=== PATIENT | female | born 1975 | race Caucasian/White ===

== ENCOUNTER 2020-11-03 08:18 | Outpatient (CLI) | payer BC ==
--- NOTE | 2020-11-03 08:06 | XRAY Report ---
PROCEDURE: Foot 3 View LT INDICATIONS: LEFT FOOT PAIN TECHNIQUE: 3 views of the foot were acquired. COMPARISON: None FINDINGS: Bones: No fractures or dislocations. No suspicious bony lesions. Soft tissues: No tibiotalar joint effusion. Achilles tendon appears normal. IMPRESSION: No visualized acute fracture or dislocation. However, occult injury cannot be excluded. Recommend ling rt interval imaging follow-up in 7-10 days as clinically indicated for additional evaluation. Reviewed by: Sharon Simmons MD on 11/03/2020 8:05 AM PDT Approved by: Sharon Simmons MD on 11/03/2020 8:05 AM PDT Station ID: [id number]
== END 2020-11-03 08:19 | disposition home or self-care (01) ==
LOC: DI.S 08:18
PROVIDERS: ATTEND Physician Assistant Medical
DX: M79.672 Pain in left foot (principal)

== ENCOUNTER 2021-02-08 08:00 | Outpatient (CLI) | payer BC ==
--- NOTE | 2021-02-08 12:11 | XRAY Report ---
PROCEDURE: Finger(s) LT INDICATIONS: CONTUSION OF LEFT THUMB TECHNIQUE: AP hand, 2 views of the left first finger(s) acquired. COMPARISON: None FINDINGS: Bones: No fractures or dislocations. No suspicious bony lesions. Soft tissues: No suspicious soft tissue calcifications. IMPRESSION: No fracture. No osseous lesion. If there are persistent symptoms or continued clinical concern for pa thology, then repeat plain film radiographs (7-10 days) or advanced imaging (CT, MR, bone scan) shoul d be considered for further evaluation. Reviewed by: Belem Salomon MD, PhD on 02/08/2021 12:09 PM PDT Approved by: Belem Salomon MD, PhD on 02/08/2021 12:09 PM PDT Station ID: [id number]
== END 2021-02-08 23:59 | disposition home or self-care (01) ==
LOC: DI.S 08:00
PROVIDERS: ATTEND Physician Assistant Medical
DX: S60.112A Contusion of left thumb with damage to nail, initial encounter (principal)

== ENCOUNTER 2022-09-30 06:59 | Outpatient (CLI) | payer BC ==
[2022-09-30 09:04] LABS: CALCIUM, IONIZED 1.21 mmol/L (1.15-1.33); VBG PH 7.387 (7.31-7.41)
[2022-09-30 09:09] LABS: BASOPHILS # (AUTO) 0.1 10^3/uL (0.0-0.1); BASOPHILS % (AUTO) 1.8 %; EOSINOPHILS # (AUTO) 0.1 10^3/uL (0.0-0.7); EOSINOPHILS % (AUTO) 1.8 %; HCT - HEMATOCRIT 40.4 % (37.0-47.0); HGB - HEMOGLOBIN 13.1 g/dL (12.0-16.0); LYMPHOCYTES # (AUTO) 1.3 10^3/uL (1.5-3.5); LYMPHOCYTES % (AUTO) 23.4 %; MEAN CORPUSCULAR HEMOGLOBIN 29.3 pg (27.0-31.0); MEAN CORPUSCULAR HGB CONC 32.4 g/dL (32.0-36.0); MEAN CORPUSCULAR VOLUME 90.4 fL (81.0-99.0); MEAN PLATELET VOLUME 9.8 fL (7.9-10.8); MONOCYTES # (AUTO) 0.4 10^3/uL (0.0-1.0); MONOCYTES % (AUTO) 6.3 %; NEUTROPHILS # (AUTO) 3.8 10^3/uL (1.5-6.6); NEUTROPHILS % (AUTO) 66.5 %; PLT - PLATELET COUNT 252 10^3/uL (130-450); RED BLOOD COUNT 4.47 10^6/uL (4.20-5.40); RED CELL DISTRIBUTION WIDTH 13.1 % (12.0-15.0); WHITE BLOOD COUNT 5.7 x10^3/uL (4.8-10.8)
[2022-09-30 09:40] LABS: THYROID STIMULATING HORMONE 0.58 uIU/mL (0.34-5.60)
[2022-09-30 09:42] LABS: FREE T3 2.85 pg/mL (2.5-3.9); FREE T4 (FREE THYROXINE) 0.94 ng/dL (0.58-1.64)
[2022-09-30 09:47] LABS: FERRITIN 59.9 ng/mL (11.0-306.8)
[2022-09-30 09:52] LABS: ALBUMIN 4.4 g/dL (3.2-5.5); CALCIUM 10.3 mg/dL (8.5-10.3); CREATININE 0.8 mg/dL (0.4-1.0); PHOSPHORUS 2.6 mg/dL (2.5-4.6); POTASSIUM 3.6 mmol/L (3.5-5.0)
--- NOTE | 2022-09-30 09:52 | Ultrasound Report ---
PROCEDURE: Retroperitoneal INDICATIONS: HYPERTENSION, FATIGUE, LOW HCT/HGB/RBCS TECHNIQUE: Real-time scanning was performed of the retroperitoneal organs, with image documentation. COMPARISON: None. FINDINGS: Right kidney measures 11 cm. The left kidney measures 11 cm. Borderline cortical thinning is 0.8 and 0.9 cm. No hydronephrosis. Bladder within normal limits, with postvoid residual of 14 cc. Both ureteral jets visualized. IMPRESSION: Borderline cortical thinning of the kidneys, 0.8 and 0.9 cm. No hydronephrosis. Unremarkable appearan ce of the bladder. Arterial Doppler findings are separately dictated. Reviewed by: Byron Brice MD on 09/30/2022 9:50 AM [facility] Approved by: Byron Brice MD on 09/30/2022 9:50 AM PST Station ID: [id number]
--- NOTE | 2022-09-30 12:09 | Ultrasound Report ---
PROCEDURE: Arterial Visceral Complete INDICATIONS: HYPERTENSION, FATIGUE, LOW HCT/HGB/RBCS TECHNIQUE: Real time scanning was performed of both kidneys, followed by Color and pulsed Doppler in terrogation of the renal vessels. COMPARISON: None FINDINGS: Aortic peak systolic velocity: 120.6 cm/s. Right side: Lynn-scale imaging: Kidney is 10.4 cm long; . No hydronephrosis. No nephrolithiasis. Renal cortex is normal in echogenicity. No suspicious solid renal masses. Proximal renal artery peak systolic velocity: 143 cm/s. Mid renal artery peak systolic velocity: 134 cm/s. Distal renal artery peak systolic velocity: 116 cm/s. Renal vein: Patent, without thrombus. Peak renal/aortic ratio (RAR): 1.2. Left side: Lynn-scale imaging: Kidney is 11.2 cm long; No hydronephrosis. No nephrolithiasis. Renal cortex i s normal in echogenicity. No suspicious solid renal masses. Proximal renal artery peak systolic velocity: 132 cm/s. Mid-renal artery peak systolic velocity: 92 cm/s. Distal renal artery peak systolic velocity: 73 cm/s. Renal vein: Patent, without thrombus. Peak renal/aortic ratio (RAR): 1.1. IMPRESSION: No duplex ultrasound evidence of renal artery stenosis Reviewed by: Luis Lopez MD on 09/30/2022 11:08 AM [facility] Approved by: Luis Lopez MD on 09/30/2022 11:08 AM [facility] Station ID: [id number]
[2022-10-01 07:10] LABS: THYROID PEROXIDASE (TPO) AB 10 IU/mL (0-34)
[2022-10-01 18:07] LABS: THYROGLOBULIN ANTIBODY <1.0 IU/mL (0.0-0.9)
== END 2022-09-30 07:00 | disposition home or self-care (01) ==
LOC: DI 06:59
PROVIDERS: ATTEND Naturopath
DX: I10 Essential (primary) hypertension (principal); R53.83 Other fatigue; R35.0 Frequency of micturition; E87.6 Hypokalemia
CPT/HCPCS: 36415; 80069; 81599; 82310; 82330; 82728; 83540; 83921; 84439; 84443; 84466; 84481; 85014; 85018; 85025; 86376; 86800; 93975

== ENCOUNTER 2022-10-06 10:09 | Outpatient (CLI) | payer BC | END 2022-10-06 10:10 | disposition home or self-care (01) | LOC: LAB 10:09 | PROVIDERS: ATTEND Naturopath | DX: E83.52 Hypercalcemia (principal); E87.6 Hypokalemia; R53.83 Other fatigue | CPT/HCPCS: 36415; 81599; 83970; 84445 ==

== ENCOUNTER 2022-11-08 15:08 | Outpatient (CLI) | payer BC ==
[2022-11-08 15:32] LABS: CALCIUM, IONIZED 1.26 mmol/L (1.15-1.33); VBG PH 7.363 (7.31-7.41)
--- NOTE | 2022-11-11 12:13 | DEXA Report ---
PROCEDURE: Dexa Spine and/or Hip INDICATIONS: HYPERCALCEMIA, HYPERPARATHYROIDISM TECHNIQUE: Dual energy x-ray absorptiometry (DXA) was performed on a [employer] System. Regions measur ed are the AP Spine, femoral neck, and if needed forearm. COMPARISON: None. FINDINGS: Lumbar Spine: Bone Mineral Density 1.005 g/cm/cm,T score -1.5, osteopenia Left Femoral Neck: Bone Mineral Density 0.843 g/cm/cm, T score -1.4, osteopenia Left Hip: Bone Mineral Density 0.848 g/cm/cm,T score -1.3, osteopenia Left forearm: Bone Mineral Density 0.689 g/cm/cm, T score -2.1, osteopenia (T score greater or equal to -1.0: NORMAL) (T score from -1.1 to -2.4: OSTEOPENIA) (T score less than or equal to -2.5 to: OSTEOPOROSIS) Impression: Osteopenia. Patient is at increased risk for fracture. Patients with diagnosis of osteoporosis or osteopenia should have regular bone mineral density assess ment. For those eligible for Medicare, routine testing is allowed once every 2 years. Testing frequ ency can be increased for patients who have rapidly progressing disease or for those who are receivin g medical therapy to restore bone mass. Reviewed by: Dudley Bah MD on 11/11/2022 12:12 PM PDT Approved by: Dudley Bah MD on 11/11/2022 12:12 PM PDT Station ID: [id number]
== END 2022-11-08 15:09 | disposition home or self-care (01) ==
LOC: DI 15:08
PROVIDERS: ATTEND Naturopath
DX: E21.3 Hyperparathyroidism, unspecified (principal); M85.89 Other specified disorders of bone density and structure, multiple sites
CPT/HCPCS: 36415; 82310; 82330; 83970; 84132

== ENCOUNTER 2023-02-23 08:18 | Outpatient (CLI) | payer BC ==
[2023-02-23 09:00] LABS: CALCIUM 9.3 mg/dL (8.5-10.3); POTASSIUM 4.1 mmol/L (3.5-5.0)
== END 2023-02-23 08:19 | disposition home or self-care (01) ==
LOC: LAB 08:18
PROVIDERS: ATTEND Naturopath
DX: E83.52 Hypercalcemia (principal); E87.6 Hypokalemia
CPT/HCPCS: 36415; 82310; 82330; 83970; 84132

== ENCOUNTER 2024-01-18 07:18 | Outpatient (CLI) | payer BC ==
--- NOTE | 2024-01-18 11:32 | DEXA Report ---
PROCEDURE: Dexa Spine and/or Hip INDICATIONS: POST PARATHYROIDECTOMY TECHNIQUE: Dual energy x-ray absorptiometry (DXA) was performed on a [employer]. Regions measur ed are the AP Spine, femoral neck, and if needed forearm. COMPARISON: 10/29/2022 FINDINGS: Lumbar Spine: Bone Mineral Density: 0.999 g/cm/cm,T score: -1.5. Osteopenia, change from previous -0.6% Left Femoral Neck: Bone Mineral Density: 0.834 g/cm/cm, T score: -1.5. Osteopenia Left Hip: Bone Mineral Density: 0.851 g/cm/cm,T score: -1.2. Osteopenia, change from previous 0.4% (T score greater or equal to -1.0: NORMAL) (T score from -1.1 to -2.4: OSTEOPENIA) (T score less than or equal to -2.5 to: OSTEOPOROSIS) Impression: By WHO criteria, this patient has low bone density (osteopenia). No significant interval change in bone mineral density of the lumbar spine. No significant interval c hange in bone mineral density of the hip. Patients with diagnosis of osteoporosis or osteopenia should have regular bone mineral density assess ment. For those eligible for Medicare, routine testing is allowed once every 2 years. Testing frequ ency can be increased for patients who have rapidly progressing disease or for those who are receivin g medical therapy to restore bone mass. Reviewed by: Sarika Peters MD on 01/18/2024 11:30 AM PDT Approved by: Sarika Peters MD on 01/18/2024 11:30 AM PDT Station ID: [id number]
== END 2024-01-18 07:19 | disposition home or self-care (01) ==
LOC: DI 07:18
PROVIDERS: ATTEND Naturopath
DX: M85.89 Other specified disorders of bone density and structure, multiple sites (principal); E89.2 Postprocedural hypoparathyroidism